=== PATIENT | female | born 1955 | race African-American/Black ===

== ENCOUNTER 2017-03-12 14:07 | Emergency (ER) | payer SELFPAY | END 2017-03-12 14:31 | disposition home or self-care (01) | LOC: NAV ERS 14:07 | DX: M54.2 Cervicalgia (principal); I10 Essential (primary) hypertension; E78.5 Hyperlipidemia, unspecified; J45.909 Unspecified asthma, uncomplicated; F17.220 Nicotine dependence, chewing tobacco, uncomplicated; Z79.82 Long term (current) use of aspirin; Z79.899 Other long term (current) drug therapy | CPT/HCPCS: 99283 ==

== ENCOUNTER 2017-09-30 14:29 | Emergency (ER) | payer SELFPAY | END 2017-09-30 14:51 | disposition home or self-care (01) | LOC: NAV ERS 14:29 | DX: H65.92 Unspecified nonsuppurative otitis media, left ear (principal); I10 Essential (primary) hypertension; E78.5 Hyperlipidemia, unspecified; E66.9 Obesity, unspecified; J45.909 Unspecified asthma, uncomplicated; F17.220 Nicotine dependence, chewing tobacco, uncomplicated; Z79.1 Long term (current) use of non-steroidal anti-inflammatories (NSAID); Z79.82 Long term (current) use of aspirin; Z79.899 Other long term (current) drug therapy | CPT/HCPCS: 99282 ==

== ENCOUNTER 2018-01-05 09:17 | Emergency (ER) | payer SELFPAY ==
[2018-01-05] MEDS ORDERED: Ibuprofen 800 MG TAB ONE (09:36)
[2018-01-05] MEDS ORDERED: HYDROcodone/Acetaminophen 10/325 mg Tablet ONE ×2 (09:36→09:46)
[2018-01-05] MEDS ORDERED: methylPREDNISolone Sod Succ/PF 125 MG/2 ML VIAL ONE (09:36)
== END 2018-01-05 10:24 | disposition home or self-care (01) ==
LOC: NAV ERS 09:17
DX: M19.031 Primary osteoarthritis, right wrist (principal); I10 Essential (primary) hypertension; E78.5 Hyperlipidemia, unspecified; E66.9 Obesity, unspecified; J45.909 Unspecified asthma, uncomplicated; F17.220 Nicotine dependence, chewing tobacco, uncomplicated; Z79.82 Long term (current) use of aspirin; Z79.899 Other long term (current) drug therapy
CPT/HCPCS: 99283; J2930

== ENCOUNTER 2019-01-03 12:20 | Emergency (ER) | payer SELFPAY | END 2019-01-03 13:40 | disposition home or self-care (01) | LOC: NAV ERS 12:20 | DX: K02.9 Dental caries, unspecified (principal); I10 Essential (primary) hypertension; E78.5 Hyperlipidemia, unspecified; J45.909 Unspecified asthma, uncomplicated; Z87.891 Personal history of nicotine dependence; Z79.899 Other long term (current) drug therapy; Z79.82 Long term (current) use of aspirin; Z79.51 Long term (current) use of inhaled steroids | CPT/HCPCS: 99282 ==

== ENCOUNTER 2019-10-17 15:26 | Emergency (ER) | payer SELFPAY ==
[2019-10-17] MEDS ORDERED: Nitrofurantoin Macrocrystal 50 MG CAP ONE (15:50)
[2019-10-17] MEDS ORDERED: Dexamethasone 20 MG/5 ML VIAL ONE (15:50)
[2019-10-17] MEDS ORDERED: Acetaminophen 500 MG TAB ONE (15:50)
[2019-10-17] MEDS ORDERED: Ibuprofen 800 MG TAB ONE (15:50)
[2019-10-17 16:07] LABS: Bilirubin Negative (Negative); Blood, Urine Negative (Negative); Glucose, Urine (Dipstick) Negative (Negative); Leukocyte Trace (Negative); Nitrite Negative (Negative); Protein, Urine (Dipstick) Negative (Neg-Trace)
[2019-10-17 16:15] LABS: Clarity SL HAZY (Clear); RBC/HPF 0-3 HPF (0-3); WBC/HPF 0-3 HPF (0-3)
[2019-10-17 16:16] LABS: Bacteria/HPF 3+ HPF (None Seen)
== END 2019-10-17 16:29 | disposition home or self-care (01) ==
LOC: NAV ERS 15:26
DX: M16.12 Unilateral primary osteoarthritis, left hip (principal); R30.0 Dysuria; I10 Essential (primary) hypertension; E78.5 Hyperlipidemia, unspecified; E78.00 Pure hypercholesterolemia, unspecified; J45.909 Unspecified asthma, uncomplicated; F17.220 Nicotine dependence, chewing tobacco, uncomplicated; Z79.899 Other long term (current) drug therapy; Z79.82 Long term (current) use of aspirin; Z79.51 Long term (current) use of inhaled steroids
CPT/HCPCS: 81003; 81015; 87086; 99283; J1100

== ENCOUNTER 2020-11-17 15:04 | Emergency (ER) | payer SELFPAY | END 2020-11-17 16:15 | disposition home or self-care (01) | LOC: NAV ERS 15:04 | DX: S16.1XXA Strain of muscle, fascia and tendon at neck level, initial encounter (principal); S00.411A Abrasion of right ear, initial encounter; I10 Essential (primary) hypertension; E78.5 Hyperlipidemia, unspecified; E78.00 Pure hypercholesterolemia, unspecified; J45.909 Unspecified asthma, uncomplicated; M16.12 Unilateral primary osteoarthritis, left hip; F17.220 Nicotine dependence, chewing tobacco, uncomplicated; Z79.82 Long term (current) use of aspirin; Z79.899 Other long term (current) drug therapy ==

== ENCOUNTER 2022-06-25 11:55 | Emergency (ER) | payer MEDICARE, OTHER | END 2022-06-25 12:17 | disposition home or self-care (01) | LOC: NAV ERS 11:55 | DX: J06.9 Acute upper respiratory infection, unspecified (principal); H92.02 Otalgia, left ear; I10 Essential (primary) hypertension; E78.00 Pure hypercholesterolemia, unspecified; F17.220 Nicotine dependence, chewing tobacco, uncomplicated; Z79.899 Other long term (current) drug therapy | CPT/HCPCS: 99283 ==

== ENCOUNTER 2022-08-03 10:45 | Emergency (ER) | payer OTHER ==
[2022-08-03] MEDS ORDERED: Acetaminophen 325 MG TAB ONE (11:20)
== END 2022-08-03 12:30 | disposition home or self-care (01) ==
LOC: NAV ERS 10:45
DX: S80.12XA Contusion of left lower leg, initial encounter (principal); S80.212A Abrasion, left knee, initial encounter; M25.571 Pain in right ankle and joints of right foot; E78.00 Pure hypercholesterolemia, unspecified; I10 Essential (primary) hypertension; F17.290 Nicotine dependence, other tobacco product, uncomplicated; Z79.899 Other long term (current) drug therapy; W19.XXXA Unspecified fall, initial encounter

== ENCOUNTER 2024-05-30 12:04 | Emergency (ER) | payer MEDICARE, SELFPAY | END 2024-05-30 13:42 | disposition home or self-care (01) | LOC: NAV ERS 12:04 | DX: R07.0 Pain in throat (principal); I10 Essential (primary) hypertension; F17.220 Nicotine dependence, chewing tobacco, uncomplicated; J45.909 Unspecified asthma, uncomplicated; Z79.899 Other long term (current) drug therapy; Z79.82 Long term (current) use of aspirin | CPT/HCPCS: 70360 ==